=== PATIENT | male | born 1955 | race Caucasian/White ===

== ENCOUNTER 2021-07-13 18:41 | Inpatient (IN) | payer MEDICARE ==
[~2021-07-13] VITALS: Ht 185.4 cm; Wt 136.8 kg
[2021-07-13 19:47] LABS: HEMOGLOBIN 16.2 gm/dl (14.0-17.5); RED BLOOD COUNT 5.27 M/UL (4.20-5.50); WHITE BLOOD COUNT 10.8 K/UL (4.5-11.0)
[2021-07-13 21:04] LABS: BUN/CREATININE RATIO 15 (0-10)
[2021-07-14] MEDS ORDERED: DEMADEX 20 MG T20 MG PO (00:32)
[2021-07-14] MEDS ORDERED: LISINOPRIL5 MG PO (00:33)
[2021-07-14] MEDS ORDERED: CELECOXIB200 MG PO (00:34)
[2021-07-14] MEDS ORDERED: JARDIANCE10 MG PO (00:35)
[2021-07-14] MEDS ORDERED: PRAVASTATIN SOD80 MG PO (00:35)
[2021-07-14] MEDS ORDERED: ELIQUIS5 MG PO (00:36)
[2021-07-14] MEDS ORDERED: GABAPENTIN800 MG PO (00:36)
[2021-07-14] MEDS ORDERED: CYCLOBENZAPRINE10 MG PO (00:37)
[2021-07-14] MEDS ORDERED: DONEPEZIL HCL5 MG PO (00:37)
[2021-07-14] MEDS ORDERED: LORATADINE10 MG PO (00:39)
[2021-07-14] MEDS ORDERED: FENOFIBRATE160 MG PO (00:39)
[2021-07-14] MEDS ORDERED: VALIUM 5 MG TAB5 MG PO (00:40)
[2021-07-14] MEDS ORDERED: VISTARIL 50 MG50 MG PO (00:40)
[2021-07-14] MEDS ORDERED: CITALOPRAM HBR40 MG PO (00:41)
[2021-07-14] MEDS ORDERED: OZEMPIC1 MG/0.71 SQ (00:41)
[2021-07-14] MEDS ORDERED: TOUJEO SOLOSTAR 300 (00:42)
[2021-07-14] MEDS ORDERED: HUMALOG100 UNIT/3 SC ×2 (00:43→08:15)
[2021-07-14] MEDS ORDERED: ASPIRIN EC81 MG PO (00:45)
[2021-07-14] MEDS ORDERED: ZEBETA 5 MG TAB5 MG PO (00:46)
[2021-07-14] MEDS ORDERED: TOUJEO MAX300 UNIT/1 SQ ×2 (08:04)
[2021-07-14] MEDS ORDERED: CEFDINIR300 MG PO (08:18)
[2021-07-15 11:31] LABS: HEMOGLOBIN 13.9 gm/dl (14.0-17.5); RED BLOOD COUNT 4.66 M/UL (4.20-5.50); WHITE BLOOD COUNT 6.6 K/UL (4.5-11.0)
== END 2021-07-15 20:38 | DRG 683 ==
LOC: ER1 18:41 → CDU 22:00 → PROG CARE 22:00 → MED SURG 4 07-14 14:54
PROVIDERS: Emergency Medicine; Internal Medicine; ADMIT Internal Medicine
DX: N17.9 Acute kidney failure, unspecified (principal); I13.0 Hypertensive heart and chronic kidney disease with heart failure and stage 1 through stage 4 chronic kidney disease, or unspecified chronic kidney disease; E66.2 Morbid (severe) obesity with alveolar hypoventilation; M86.8X7 Other osteomyelitis, ankle and foot; E87.1 Hypo-osmolality and hyponatremia; Z20.822 Contact with and (suspected) exposure to COVID-19; I95.1 Orthostatic hypotension; N18.9 Chronic kidney disease, unspecified; I50.9 Heart failure, unspecified; E11.69 Type 2 diabetes mellitus with other specified complication; E86.0 Dehydration; R09.02 Hypoxemia; E11.22 Type 2 diabetes mellitus with diabetic chronic kidney disease; F32.A Depression, unspecified; F41.9 Anxiety disorder, unspecified; T50.2X5A Adverse effect of carbonic-anhydrase inhibitors, benzothiadiazides and other diuretics, initial encounter; I48.0 Paroxysmal atrial fibrillation; E11.40 Type 2 diabetes mellitus with diabetic neuropathy, unspecified; W01.0XXA Fall on same level from slipping, tripping and stumbling without subsequent striking against object, initial encounter; E78.5 Hyperlipidemia, unspecified; I51.3 Intracardiac thrombosis, not elsewhere classified; F03.90 Unspecified dementia, unspecified severity, without behavioral disturbance, psychotic disturbance, mood disturbance, and anxiety; Z89.421 Acquired absence of other right toe(s); Z83.3 Family history of diabetes mellitus; Z82.49 Family history of ischemic heart disease and other diseases of the circulatory system; Z79.4 Long term (current) use of insulin; Z79.899 Other long term (current) drug therapy; Z79.01 Long term (current) use of anticoagulants; Z68.39 Body mass index [BMI] 39.0-39.9, adult; Z79.82 Long term (current) use of aspirin
CPT/HCPCS: ECHO; 36415; 36600; 70450; 71045; 73630; 80053; 80061; 80307; 81001; 82550; 82553; 82570; 82607; 82746; 82803; 82962; 83036; 83605; 83735; 83880; 83930; 83935; 84100; 84300; 84439; 84443; 84484; 85025; 85379; 85652; 86140; 87040; 93005; 93306; 96365; 99285; J0692; J2185; J3370; J7030; J7070; Q0177; U0002